=== PATIENT | male | born 1975 | race Caucasian/White ===

== ENCOUNTER 2017-03-07 16:52 | Emergency (ER) | payer BC ==
[~2017-03-07] VITALS: Ht 195.6 cm; Wt 99.8 kg
--- NOTE | ~2017-03-07 | CT4 ---
[facility] A Service of [facility] & [facility] [place] RADIOLOGY TEXT RESULTS PATIENT: JAIRO MCCORMICK LOCATION: [facility] : 73 UNIT #: [id number] AGE: [address]: FERNANDO PAREDES APRN SEX: M ORDER DR: [id number] [facility] [address] [place], [place] [address] [id number] E MR#: [id number] #: [id number] NAME: JAIRO MCCORMICK. : 1975 SEX: M STUDY DATE/TIME: 03/07/2017 19:06 UNIT: CFTX ROOM: STUDY DESCRIPTION: CT Abd and Pelv Wo Cont Attending Physician: Fernando Paredes Aprn Ordering Physician: Amber Camacho P.A.-C. Primary Care Physician: Fernandez Cameron M.D. MEDICAL IMAGING REPORT This report is preliminary unless electronic signature is present EXAM CT scan of the abdomen and pelvis without contrast 03/07/2017 HISTORY Right lower quadrant abdominal pain for 3 days, worsening. TECHNIQUE Spiral CT was performed through the abdomen and pelvis following oral contrast administration only as per clinician request using renal stone protocol. This CT examination was performed with one or more of the following radiation dose reduction techniques: automatic exposure control, adjustment of mA and/or kV according to patient size, and iterative reconstruction. FINDINGS ABDOMEN: There is no obstructing renal or ureteral calculus. The kidneys are normal bilaterally. The visualized liver, spleen, pancreas, gallbladder and biliary tree and adrenal glands are normal. PELVIS: There is focal thickening of the cecum with inflammatory stranding in the surrounding mesenteric fat. The terminal ileum and the appendix appear normal. Findings probably reflect focal inflammatory or infectious colitis. Findings may reflect diverticulitis as there is a questionable diverticulum with surrounding inflammation located along the anterior aspect of the cecum. Given the short segment of involvement of the colon, the possibility of colon carcinoma is not excluded on the basis of this examination and clinical correlation is recommended. The remainder of the gut is unremarkable. No adenopathy is seen. There is no free fluid in the abdomen or pelvis. There is a small periumbilical hernia containing only fat. IMPRESSION 1. No obstructing renal or ureteral calculus. [facility] A Service of [facility] & [facility] RADIOLOGY TEXT RESULTS PATIENT: JAIRO MCCORMICK LOCATION: [facility] : 73 UNIT #: [id number] AGE: [address]: FERNANDO PAREDES APRN SEX: M ORDER DR: 2. There is thickening of the wall of the cecum with inflammatory stranding in the surrounding mesenteric fat. The terminal ileum and the appendix both appear normal. There is a questionable diverticulum located anterior to the cecum. Findings probably reflect focal inflammatory or infectious colitis possibly diverticulitis. No bowel obstruction or abscess is seen. Clinical correlation strongly recommended. Given the short segment of involvement of the colon, the possibility of colon carcinoma is not excluded on the basis of this examination. 3. Small periumbilical hernia containing only fat. Dictated by... Carlo Walters M.D. THIS IS AN ELECTRONICALLY VERIFIED REPORT Carlo Walters M.D. at 03/08/2017 2:16 PM NARINDER/yulissa TD: 03/08/2017 10:13 JOB #: [id number] MEDICAL IMAGING REPORT Page 1 of 1 COPY
[2017-03-07 17:42] LABS: ALBUMIN SERUM 3.7 g/dL (3.5-5.0); BILIRUBIN, DIRECT 0.1 mg/dL (0.0-0.2); BILIRUBIN,TOTAL 0.1 mg/dL (0.2-2.0); CALCIUM SERUM 8.8 mg/dL (8.4-10.2); CREATININE SERUM 1.2 mg/dL (0.6-1.4); GLOM FILT RATE Estimated 74.2 mL/min (>60); POTASSIUM 4.1 mmol/L (3.5-5.1); PROTEIN TOTAL SERUM 7.4 g/dL (6.0-8.3)
[2017-03-07 18:12] LABS: URINE SOURCE CLEAN CATCH
[2017-03-07 18:31] LABS: BASOPHIL# 0.1 X10e3 (0-0.3); BASOPHIL% 0.8 % (0-2.5); EOSINOPHIL# 0.4 X10e3 (0-0.7); EOSINOPHIL% 3.6 % (0.0-7.0); HEMATOCRIT 42.2 % (38.0-50.0); HEMOGLOBIN 14.1 gm/dL (13.0-16.0); LYMPHOCYTE# 2.1 X10e3 (1.0-3.5); LYMPHOCYTE% 18.7 % (17.0-45.0); MEAN CELL VOLUME 89.7 FL (83-96); MEAN CORPUSCULAR HEMOGLOBIN 30.1 PG (28-34); MEAN CORPUSCULAR HGB CONC 33.5 g/dL (30-36); MEAN PLATELET VOLUME 8.9 FL (6.5-11.5); MONOCYTE# 0.9 X10e3 (0-1.0); MONOCYTE% 8.3 % (3.0-12.0); NEUTROPHIL# 7.8 X10e3 (1.5-7.1); NEUTROPHIL% 68.6 % (40-75); PLATELET COUNT 257 X10e3 (140-420); RED CELL DISTRIBUTION WIDTH 13.2 % (11.0-15.5); WHITE BLOOD COUNT 11.3 X10e3 (4.0-10.5)
[2017-03-07 18:39] LABS: DIFF IND NO
[2017-03-07 19:05] LABS: URINE APPEARANCE CLEAR; URINE BILIRUBIN NEG (NEG); URINE BLOOD NEG (NEG); URINE COLOR YELLOW; URINE GLUCOSE NORM (NORM); URINE KETONE NEG (NEG); URINE LEUKOCYTE ESTERASE NEG (NEG); URINE NITRATE NEG (NEG); URINE PROTEIN NEG (NEG); URINE SPECIFIC GRAVITY 1.025 (1.003-1.035); URINE UROBILINOGEN NORM (NORM)
[2017-03-07 19:12] LABS: URINE CRYSTALS CALCIUM OXALATE /[HPF]
[2017-03-07 19:13] LABS: CULTURE INDICATED? NO; URINE MUCUS PRESENT
== END 2017-03-07 20:55 | disposition home or self-care (01) ==
LOC: CED 16:52 → CFTX 16:52 → CED 17:41 → CFTX 17:41
PROVIDERS: Emergency Medicine; Physician Assistant
DX: R10.31 Right lower quadrant pain (principal); Z88.0 Allergy status to penicillin; Z88.8 Allergy status to other drugs, medicaments and biological substances
CPT/HCPCS: 36415; 74176; 80048; 80076; 81003; 82150; 83690; 85025; 96374; 96375; 99284; J2270; J2405